=== PATIENT | female | born 1985 | race Caucasian/White ===

== ENCOUNTER 2020-09-15 10:51 | Emergency (ER) | payer OTHER ==
[~2020-09-15] VITALS: Ht 177.8 cm; Wt 69.8 kg
[2020-09-15] MEDS ORDERED: HYDACE10B PO (13:10)
== END 2020-09-15 13:39 | disposition home or self-care (01) ==
LOC: ER 10:51
DX: S16.1XXA Strain of muscle, fascia and tendon at neck level, initial encounter (principal); S06.9X9A Unspecified intracranial injury with loss of consciousness of unspecified duration, initial encounter; W55.11XA Bitten by horse, initial encounter
CPT/HCPCS: 70450; 72125; 72170; 99284-25; A9270

== ENCOUNTER → 2022-06-23 | Outpatient (CLI) | payer OTHER ==
[~2022-06-23] MED LIST: HYDACE10B PO
[2022-06-23 17:13] LABS: BASOPHILS ABSOLUTE AUTO 0.04 K/mm3 (0.00-0.23); BASOPHILS PERCENT AUTO 1 % (0-2); EOSINOPHILS ABSOLUTE AUTO 0.11 K/mm3 (0.00-0.68); EOSINOPHILS PERCENT AUTO 2 % (0-6); Hematocrit 41.2 % (33.0-51.0); Hemoglobin 14.2 g/dL (11.5-16.0); IMMATURE GRAN ABSOLUTE AUTO 0.01 K/mm3 (0.00-0.10); IMMATURE GRAN PERCENT AUTO 0 % (0-1); LYMPHOCYTES ABSOLUTE AUTO 1.55 K/mm3 (0.84-5.20); LYMPHOCYTES PERCENT AUTO 22 % (21-46); MONOCYTES ABSOLUTE AUTO 0.47 K/mm3 (0.16-1.47); MONOCYTES PERCENT AUTO 7 % (4-13); Mean Corpuscular HGB 30.5 pg (26.0-34.0); Mean Corpuscular HGB Conc 34.5 g/dL (31.5-36.5); Mean Corpuscular Volume 89 fL (80-100); Mean Platelet Volume 11.9 fL (9.1-12.4); NEUTROPHILS ABSOLUTE AUTO 4.99 K/mm3 (1.96-9.15); NEUTROPHILS PERCENT AUTO 70 % (41-73); Platelet Count 234 K/mm3 (150-400); RDW Standard Deviation 38.3 fL (35.1-46.3); Red Blood Cell Count 4.65 M/mm3 (3.80-5.20); White Blood Cell Count 7.17 K/mm3 (4.00-11.30)
[2022-06-23 17:23] LABS: Albumin, Blood 4.2 g/dL (3.4-5.0); Albumin/Globulin Ratio 1.1 (0.8-1.8); Bilirubin, Total 0.7 mg/dL (0.1-1.0); Bun/Creatinine Ratio 9.8 (12.0-20.0); Calcium, Blood 9.2 mg/dL (8.5-10.1); Creatinine, Blood 0.92 mg/dL (0.40-1.00); Globulin, Blood 3.9 g/dL (2.2-4.0); Potassium, Blood 3.9 mmol/L (3.5-5.5); Total Protein, Blood 8.1 g/dL (6.4-8.2)
== END | disposition home or self-care (01) ==
LOC: LAB SHORT 17:06 → LAB 17:06
PROVIDERS: Physician Assistant Medical
DX: R07.9 Chest pain, unspecified (principal)
CPT/HCPCS: 80053; 84484; 85025; 85379; 87086

== ENCOUNTER → 2022-06-27 | Outpatient (CLI) | payer OTHER ==
[2022-06-27 15:17] LABS: Bun/Creatinine Ratio 10.8 (12.0-20.0); Calcium, Blood 8.2 mg/dL (8.5-10.1); Creatinine, Blood 0.83 mg/dL (0.40-1.00); Potassium, Blood 3.2 mmol/L (3.5-5.5)
== END | disposition home or self-care (01) ==
LOC: LAB SHORT 15:07 → LAB 15:07
PROVIDERS: Physician Assistant Surgical
DX: E86.0 Dehydration (principal)
CPT/HCPCS: 80048

== ENCOUNTER → 2022-07-24 | Outpatient (CLI) | payer OTHER ==
[~2022-07-24] MED LIST changes: +CEPH500 PO
[2022-07-28 09:12] LABS: HPV 16 Negative (Negative); HPV 18 Negative (Negative); HPV OTHER HR TYPES Negative (Negative)
== END | disposition home or self-care (01) ==
LOC: LAB SHORT 18:23 → LAB 18:23
PROVIDERS: Obstetrics & Gynecology
DX: Z01.419 Encounter for gynecological examination (general) (routine) without abnormal findings (principal)
CPT/HCPCS: 87624; G0145

== ENCOUNTER 2022-11-09 09:06 | Inpatient (IN) | payer OTHER ==
[2022-11-09] VITALS (17 sets, daily range): BP systolic 92–155; BP diastolic 50–87
[~2022-11-09] VITALS: Ht 177.8 cm; Wt 65.3 kg
--- NOTE | 2022-11-09 11:16 | NUR ---
11/09/22 1116 Belen Whitney PATIENT RECEIVED PYRIDIUM IN THE PREOP SETTING PRIOR TO ARRIVING TO THE OR.
--- NOTE | 2022-11-09 17:41 | NUR ---
SHIFT SUMMARY POD0 TOTAL ABD HYSTER, A/OX4, VSS, TOLERATING PO, SHE HAS NOT BEEN UP YET AND HENNING IS STILL I PLACE, PAIN WELL MANAGED PER EMAR. NO ACUTE EVENTS THIS SHIFT, CALL LIGHT IN REACH.
[2022-11-10] VITALS (7 sets, daily range): BP systolic 88–108; BP diastolic 51–68
--- NOTE | 2022-11-10 04:40 | NUR ---
SHIFT SUMMARY S/P MAXINE. TRANSVERSE ABD DRESSING CHANGED X1. DRESSING HAD MODERATE AMOUNT OF SEROSANG DRAINAGE + DRESSING REMOVED TO ATTEMPT TO BLADDER SCAN. BLADDER SCAN UNSUCCESSFUL. PT WITH MINIMAL AMOUNT OF URINE OUTPUT AND ONLY ABLE TO VOID SMALL AMOUNTS AT A TIME. PT DENIES BLADDER FULLNESS. SCANT VAGINAL BLEEDING NOTED ON JARRETT PAD. BLOOD PRESSURES AND HEART RATES HAVE BEEN LOW, BUT PT ASYMPTOMATIC. CURRENTLY, X1 LITER LR BOLUS INFUSING AT THIS TIME. KPAD TO ABD FOR COMFORT. TYLENOL/IBUPROFEN + 1 ROXICODNE FOR PAIN MANAGEMENT. INDEP IN ROOM AND REPORTS FLATUS. DR. MEDEIROS NOTIFIED OF VS AND MINIMAL URINE OUTPUT. ORDERS PLACED AT THAT TIME. WILL CONT TO MONITOR. PT USES CALL LIGHT APPROPRIATELY.
[2022-11-10 05:00] LABS: BASOPHILS ABSOLUTE AUTO 0.02 K/mm3 (0.00-0.23); BASOPHILS PERCENT AUTO 0 % (0-2); EOSINOPHILS PERCENT AUTO 0 % (0-6); Hematocrit 29.3 % (33.0-51.0); Hemoglobin 9.4 g/dL (11.5-16.0); IMMATURE GRAN ABSOLUTE AUTO 0.02 K/mm3 (0.00-0.10); IMMATURE GRAN PERCENT AUTO 0 % (0-1); LYMPHOCYTES ABSOLUTE AUTO 1.15 K/mm3 (0.84-5.20); LYMPHOCYTES PERCENT AUTO 14 % (21-46); MONOCYTES ABSOLUTE AUTO 0.73 K/mm3 (0.16-1.47); MONOCYTES PERCENT AUTO 9 % (4-13); Mean Corpuscular HGB 27.1 pg (26.0-34.0); Mean Corpuscular HGB Conc 32.1 g/dL (31.5-36.5); Mean Corpuscular Volume 84 fL (80-100); NEUTROPHILS ABSOLUTE AUTO 6.35 K/mm3 (1.96-9.15); NEUTROPHILS PERCENT AUTO 77 % (41-73); Platelet Count 253 K/mm3 (150-400); RDW Coefficient Variation 13.1 % (11.7-14.2); RDW Standard Deviation 40.2 fL (35.1-46.3); Red Blood Cell Count 3.47 M/mm3 (3.80-5.20); White Blood Cell Count 8.27 K/mm3 (4.00-11.30)
--- NOTE | 2022-11-10 19:48 | NUR ---
SHIFT SUMMARY POD1 TOTAL ABD HYSTER, A/OX4, VSS, TOLERATING PO, URINE OUTPUT INCREASED SLIGHTLY TODAY, PAIN WELL MANAGED THOUGH PATIENT REPORTS INCREASED PAIN WHEN SHE GETS UP AND ATTEMPTS TO VOID. FLUIDS INFUSED TODAY ORDERED. NO ACUTE EVENTS THIS SHIFT, CALL LIGHT IN REACH.
[2022-11-11 04:03] VITALS: BP 107/62
--- NOTE | 2022-11-11 04:49 | NUR ---
ABDOMINAL BINDER PLACED
--- NOTE | 2022-11-11 05:15 | NUR ---
SHIFT SUMMARY POD2 TOTAL ABD HYSTER, MEDIPORE DRESSING C/D/I. PT MAY REMOVE FOR SHOWERING BUT CONTINUES TO DECLINE. ABD BINDER PLACED FOR COMFORT. SCANT SPOTTING TO JARRETT PAD. MINIMAL URINE OUTPUT THIS SHIFT OF 100ML, BLADDER SCANNED OF 231ML. PT MEDICATED 3X FOR PAIN THIS SHIFT, PLANS FOR DISCHARGE TODAY. CALL LIGHT W/IN REACH. PT INDEP IN ROOM.
[2022-11-11 07:51] VITALS: BP 101/58
[2022-11-11] MEDS ORDERED: MASOPHEN500 M2 PO (08:36)
[2022-11-11] MEDS ORDERED: OXYC5 PO (08:36)
[2022-11-11] MEDS ORDERED: IBU800 MG PO (08:36)
[2022-11-11] MEDS ORDERED: ONDA4ODT MM (08:37)
--- NOTE | 2022-11-11 09:28 | NUR ---
DISCHARGE NOTE: PATIENT WAS EDUCATED ON DISCHARGE INSTRUCTIONS. SHE VERBALIZED UNDERSTANDING OF INSTRUCTIONS AND HAD NO FURTHER QUESTIONS AT THIS TIME. IV WAS TAKEN OUT AND WNL. PAIN IS MANAGED WITH PO PAIN MEDS. HER LOWER ABD TRANSVERSE SITE HAS MEDIPORE DRESSING THAT IS C/D/I. SHE IS TOLERATING PO INTAKE AND IS VOIDING/PASSING GAS. SHE IS DRESSED AND HAS PERSONAL ITEMS IN THE ROOM GATHERED. PATIENT IS BEING WHEELCHAIRED OUT TO HER FRIENDS CAR TO BE TAKEN HOME.
== END 2022-11-11 09:30 | disposition home or self-care (01) | DRG 742 ==
LOC: SURS 09:06 → PRE IP 10:45 → SURS 14:00
PROVIDERS: ADMIT Obstetrics & Gynecology
PROC: 0UT70ZZ Resection of Bilateral Fallopian Tubes, Open Approach (ICD-10-PCS; 2022-11-09)
PROC: 0UT90ZZ Resection of Uterus, Open Approach (ICD-10-PCS; principal; 2022-11-09 10:45)
DX: D25.1 Intramural leiomyoma of uterus (principal); D62 Acute posthemorrhagic anemia; N93.9 Abnormal uterine and vaginal bleeding, unspecified; N80.00 Endometriosis of the uterus, unspecified; J30.9 Allergic rhinitis, unspecified; I45.6 Pre-excitation syndrome; N83.8 Other noninflammatory disorders of ovary, fallopian tube and broad ligament; N73.6 Female pelvic peritoneal adhesions (postinfective)
CPT/HCPCS: 36415; 85025; 86850; 86900; 86901; 88307; 94762; A9270; J0690; J2405; J2916; J7120

== ENCOUNTER → 2022-12-21 | Outpatient (CLI) | payer OTHER ==
[~2022-12-21] MED LIST changes: +IBU800 MG PO; +MASOPHEN500 M2 PO; +ONDA4ODT MM; +OXYC5 PO
[2022-12-22 11:18] LABS: Candida species (DNA Probe) Negative (NEGATIVE); G. vaginalis (DNA Probe) Positive (NEGATIVE); T. vaginalis (DNA Probe) Negative (NEGATIVE)
== END ==
LOC: LAB 15:30 → LAB SHORT 15:30
PROVIDERS: Obstetrics & Gynecology
DX: N89.8 Other specified noninflammatory disorders of vagina (principal)
CPT/HCPCS: 87480; 87510; 87660